=== PATIENT | male | born 2000 | race Two or more races ===

== ENCOUNTER 2025-06-09 23:36 | Emergency (ER) | payer SELFPAY ==
[2025-06-09 23:38] VITALS: BP 148/96; PULSE 125; RESP 19; TEMP 36.6; O2SAT 100
[2025-06-09 23:58] VITALS: BMI 24.4
--- NOTE | 2025-06-09 23:59 | PD.EDMEDCL ---
ED Medical Clearance RME/HPI General Chief complaint: Medical Clearance Stated complaint: MEDICAL CLEARNACE Time Seen by Provider: 06/10/25 00:00 Arrival date/time: 06/09/25 23:36 RME / HPI RME / HPI Narrative: Dr. Bellamy?s Main ED Evaluation: 25 y/o male BIB law enforcement for medical clearance. Patient was tased and has a taser ruslan in each of his lower extremities. Patient denies loss of consciousness, head strike, headache. No midline posterior neck pain. Denies any other injury or trauma. Related Information Previous Rx's ?Medication ?Instructions ?Recorded mupirocin 2 % topical ointment 1 applic topical BID #15 grams 06/10/25 ([facility]) Allergies Allergy/AdvReac Type Severity Reaction Status Date / Time No Known Allergies Allergy Verified 06/10/25 00:01 Review of Systems Review of Systems Systems Reviewed: All systems reviewed, normal except as documented Past Medical History Social History SMOKING STATUS: Never smoker ED Exam Narrative Physical exam: GENERAL APPEARANCE: alert and oriented x 4, well-developed, well-nourished, no acute distress VITALS: All vitals were reviewed and the pulse ox is 100% on room air, which is normal according to my interpretation. HEENT: Normocephalic, atraumatic; pupils equal, round, reactive to light; EOMI; mucous membranes pink, moist; oropharynx clear NECK: Supple LUNGS: CTABL; no wheezes, no rales, no rhonchi HEART: Regular rate, regular rhythm; normal S1, S2; no murmurs ABDOMEN: non distended; normal BS; soft, no tenderness, no guarding, no rebound; no masses, no organomegaly, no hernia BACK: no CVA tenderness EXTREMITIES: 1 taser ruslan to each thigh with minimal active bleeding and no tenderness; no edema NEUROLOGIC: awake; alert and oriented x4; cranial nerves II-XII grossly intact; no focal sensory or motor deficits PSYCHIATRIC: appropriate mood and affect SKIN: warm, dry, normal color; no rashes Course Quality Measures none Orders Category Date Time Status Miscellaneous Nursing Order NOW Care 06/10/25 00:01 Completed Bacitracin Oint pkt Med 06/10/25 00:01 Discontinued 1 gm TOP X1 ONE Vital Signs Vital signs: Vital Signs Temperature 97.8 F 06/09/25 23:38 Pulse Rate 125 H 06/09/25 23:38 Respiratory Rate 19 06/09/25 23:38 Blood Pressure 148/96 H 06/09/25 23:38 Pulse Oximetry (%) 100 06/09/25 23:38 PROCEDURES: Foreign Body Removal Time Out Performed: yes Site: left, right and lower extremity Description of foreign body: other (Taser ruslan) Sedation/Analgesia: other (Local lidocaine 1% without epi) Technique: removal with forceps Confirmed by:: direct visualization, patient report and palpation Complications: pain and bleeding Post-procedure exam: awake, alert, normal BP, normal HR and normal O2 sat Neurovascular: normal capillary fill, distal light touch sensation intact and no signs of compartment syndrome Medical Clearance MDM Narrative MDM Narrative:: Erick is a 25-year-old male who was brought to the emergency department by police in custody after being tased during the arrest. Patient had a taser ruslan in each of his lower extremities. I used lidocaine 1% without epi to anesthetize the areas and removed each ruslan. Patient's wounds were dressed and he was discharged into police custody Scribe Attestation: I, April Santos, am scribing for and in the presence of Dr. Bellamy. Provider Notation: Although this document has been carefully reviewed, there may still be some phonetic and other typographical errors. These errors are purely grammatical due to imperfections in the software program and should not be construed in any way to compromise the substance of the patient's medical care during this visit. Patient data External records reviewed:: [facility] previous records (No prior ED records available for review) Clinical information provided by:: patient and law enforcement Social determinants that could affect healthcare access:: none Patient has the following chronic illnesses:: None reported How is presenting disease/condition affected by chronic disease/condition?: no chronic disease Evaluation data The following diagnostics were reviewed and interpreted by me:: other (specify) (N/A) Lab and/or radiology exams considered but not ordered:: None Interpretation Summary: N/A Medications / Prescriptions Medications or Prescriptions considered but not ordered:: None Medication administrations:: Medication Administration History Discontinued Medications Bacitracin (Bacitracin Oint 1 Gm Packet) 1 gm TOP X1 ONE Stop: 06/10/25 00:02 Last Admin: 06/10/25 00:17 Dose: 1 gm Documented By: SM See above if any Consultations Consultation(s) initiated? (list below): No Diagnosis Medical Clearance Differential Diagnosis: other (Laceration, Abrasion, Puncture Wound) Most likely diagnosis given after review of the tests above:: See clinical impression below. Admission Indicated Admission indicated?: not indicated Explain why admission is indicated or not indicated:: Patient has no emergent abnormalities and can be managed on an outpatient basis. Admission Request Was there a request for admission?: No Disposition Plan Disposition Plan: other (specify) (Signed out to Law Enforcement) Discharge Plan Plan Patient Disposition: Prison/Court/Law Discharge Disposition comment: Safe for discharge into police custody Patient condition on transfer: Stable Prescriptions/Referrals Prescriptions/Med Rec: New mupirocin [[facility]] 2 % ointment 1 applic topical BID Qty: 15 0RF Referrals: [facility] [Provider Group] - In 1 week Problem List Clinical Impression: Taser injury Patient/Caregiver Discharge Instructions Discharge Activity: activity as tolerated Education Materials: Discharge Instructions Wound ... Additional Instructions: Please return to the emergency department if you have any worsening or any further medical problems we will help you. Otherwise you should follow-up with your primary care doctor within the next several days. Print Language: Swedish Stand Alone Forms: Mini Award Info., Patient Portal Info Letter
[2025-06-10] MEDS: BACITRACIN OINT 1 GM PACKET TOP (00:17)
== END 2025-06-10 00:19 ==
LOC: SERX 06-10 00:32
PROVIDERS: Emergency Provider Emergency Medicine
DX: Z02.89 Encounter for other administrative examinations (principal); S81.842A Puncture wound with foreign body, left lower leg, initial encounter; S81.841A Puncture wound with foreign body, right lower leg, initial encounter; Y35.833A Legal intervention involving a conducted energy device, suspect injured, initial encounter
CPT/HCPCS: 99281; A9270